=== PATIENT | female | born 1980 | race Caucasian/White ===

== ENCOUNTER 2020-04-01 19:59 | Day surgery (SDC) | payer OTHER ==
[2020-04-01 20:19] VITALS: BP 135/65; TEMP 99.2; BMI 35.7
== END 2020-04-01 23:10 | disposition home or self-care (01) ==
LOC: L&D/OP 19:59
PROVIDERS: ATTEND Obstetrics & Gynecology
DX: O86.11 Cervicitis following delivery (principal); Z79.899 Other long term (current) drug therapy
CPT/HCPCS: 99282